=== PATIENT | female | born 1990 | race Caucasian/White ===

== ENCOUNTER 2018-11-27 12:10 | Emergency (ER) | payer OTHER ==
[2018-11-27 12:18] VITALS: BP 124/84
--- NOTE | 2018-11-27 12:51 | UC ---
Lower Extremity/Ankle HPI - HPI Summary HPI Summary: 27 yo WF fell 15 steps and c/o right foot and lateral toe pains - History of Current Complaint Chief Complaint: UCLowerExtremity Stated Complaint: TOE INJURY Time Seen by Provider: 11/27/18 12:10 Hx Obtained From: Patient Hx Last Menstrual Period: 2 wks ago Onset/Duration: Sudden Onset Severity Initially: Moderate Severity Currently: Moderate Pain Intensity: 4 - Allergies/Home Medications Allergies/Adverse Reactions: Allergies Allergy/AdvReac Type Severity Reaction Status Date / Time No Known Allergies Allergy Verified 11/27/18 12:19 Home Medications: Home Medications Cholecalciferol TAB* [Vitamin D TAB*] 1 tab PO WEEKLY 11/27/18 [History Confirmed 11/27/18] Desvenlafaxine Succinate [Pristiq] 1 tab PO DAILY 11/27/18 [History Confirmed ] Gabapentin CAP(*) [Neurontin 300 CAP(*)] 1 tab PO DAILY 11/27/18 [History Confirmed 11/27/18] Levonorgestrel (Iud) [Mirena IUD] 1 dose VAGINAL ONCE 11/27/18 [History Confirmed 11/27/18] PMH/Surg Hx/FS Hx/Imm Hx Previously Healthy: Yes - Surgical History Surgical History: None - Social History Alcohol Use: Occasionally Substance Use Type: None Smoking Status (MU): Never Smoked Tobacco Review of Systems All Other Systems Reviewed And Are Negative: Yes - Comments Additional Review of Systems Comments: Constitutional: Negative Eyes: Negative ENT: Negative Cardiovascular: Negative Respiratory: Negative Gastrointestinal: Negative Genitourinary: Negative Musculoskeletal: right lateral foot and 5th toe pain Neurological: Negative Psychological: Normal All Other Systems Reviewed And Are Negative: Yes Physical Exam - Summary Physical Exam Summary: Vital Signs Reviewed: Yes Skin: Positive: Warm Head/Face: Positive: Normal Head/Face Inspection Eyes: Positive: Normal ENT: Positive: Normal ENT inspection Neck: Positive: Supple Respiratory/Lung Sounds: Positive: Clear to Auscultation Cardiovascular: Positive: Normal, RRR, S1, S2 Abdomen Description: Positive: Nontender Musculoskeletal: Positive:right lateral dorsum of foot TTP, ecchymosis over 4th and 5th toes and prox phalanx and distal MT, NVI Neurological: Positive: Normal Psychiatric: Positive: Normal, Affect/Mood Appropriate Vital Signs: Initial Vital Signs Temp 36.9 C 11/27/18 12:15 Pulse 88 11/27/18 12:15 Resp 12 11/27/18 12:15 BP 124/84 11/27/18 12:15 Pulse Ox 100 11/27/18 12:15 Lower Extremity Course/Dx - Course Course Of Treatment: XR of right foot and ankle NEG for fx or dislocation - Differential Dx/Diagnosis Provider Diagnosis: Foot pain, right, Right foot sprain Discharge - Sign-Out/Discharge Documenting (check all that apply): Patient Departure All imaging exams completed and their final reports reviewed: Yes - Discharge Plan Condition: Stable Disposition: HOME Referrals: [facility] [place] [facility]ENN[facility] [Primary Care Provider] - - Billing Disposition and Condition Condition: STABLE Disposition: Home
== END 2018-11-27 13:40 | disposition home or self-care (01) ==
LOC: UCEAST 12:10
DX: S93.601A Unspecified sprain of right foot, initial encounter (principal); M79.671 Pain in right foot; X58.XXXA Exposure to other specified factors, initial encounter; Y92.9 Unspecified place or not applicable
CPT/HCPCS: 99211; G0463